=== PATIENT | male | born 1990 | race Two or more races ===

== ENCOUNTER 2025-05-15 02:31 | Emergency (ER) | payer MEDICAID, OTHER ==
[~2025-05-15] VITALS: Ht 177.8 cm; Wt 113.4 kg
[2025-05-15 05:09] VITALS: BP 140/88; TEMP 98.3; O2SAT 98
== END 2025-05-15 05:09 | disposition home or self-care (01) ==
LOC: ER 02:42
DX: F10.129 Alcohol abuse with intoxication, unspecified (principal); Z87.11 Personal history of peptic ulcer disease; Z60.2 Problems related to living alone; Y90.9 Presence of alcohol in blood, level not specified